=== PATIENT | male | born 1945 | race Two or more races ===

== ENCOUNTER 2021-11-24 00:39 | Inpatient (IN) | payer MEDICARE, OTHER ==
[~2021-11-24] VITALS: Ht 182.9 cm; Wt 85.3 kg
--- NOTE | 2021-11-24 01:00 | NUR ---
TO ER BED 9. [id number] FROM HOME C/O NECK PAIN AND SWOLLEN RIGHT FINGER.PT IS ALERT. RR EVEN AND NONLABORED. CONNECTED TO MONITOR. AWAITING MD JACOBSEN
[2021-11-24] MEDS ORDERED: CEFTRIAXONE 1GM BAG (ER ONLY) 1 GM/50 ML PIGGYBACK IV ONE (04:00)
[2021-11-24] MEDS ORDERED: CEFTRIAXONE 1GM BAG (ER ONLY) 50 ML IV ONE (04:05)
--- NOTE | 2021-11-24 04:08 | NUR ---
IV LINE ESTABLISHED, [id number]
--- NOTE | 2021-11-24 04:20 | NUR ---
BLOOD AND CULTURES COLLECTED
[2021-11-24 04:26] LABS: BASOPHILS # (AUTO) 0.1 K/uL (0.0-0.2); BASOPHILS % (AUTO) 0.3 % (0.0-2.0); EOSINOPHILS % (AUTO) 0.4 % (0.0-6.0); HEMATOCRIT 47 % (39-51); LYMPHOCYTES # (AUTO) 10.4 K/uL (0.8-4.8); LYMPHOCYTES % (AUTO) 58.1 % (20.0-44.0); MEAN CORPUSCULAR HGB CONC 32 g/dl (31.0-36.0); MEAN CORPUSCULAR VOLUME 85 fL (80-96); MONOCYTES # (AUTO) 0.6 K/uL (0.1-1.30); MONOCYTES % (AUTO) 3.2 % (2.0-12.0); NEUTROPHILS # (AUTO) 6.8 K/uL (1.8-8.9); PLATELET COUNT (AUTO) 252 K/uL (150-450); RED BLOOD CELL COUNT(AUTO) 5.47 MIL/uL (4.5-6.0); WHITE BLOOD COUNT (AUTO) 17.9 K/uL (4.3-11.0)
[2021-11-24] MEDS ORDERED: DEXAMETHASONE SOD PHOSPHATE 10 MG/ML VIAL IV ONE (04:30)
[2021-11-24] MEDS ORDERED: Z GUARD REMEDY 4 OZ OINT TP PRN (04:30)
[2021-11-24] MEDS ORDERED: MAGNESIUM HYDROXIDE 30 ML UDC PO PRN (04:30)
[2021-11-24] MEDS ORDERED: MAG HYDROX/AL HYDROX/SIMETH 30 ML UDC PO PRN (04:30)
[2021-11-24] MEDS ORDERED: ONDANSETRON HCL/PF 4 MG/2 ML VIAL IVP PRN (04:30)
[2021-11-24] MEDS ORDERED: ACETAMINOPHEN 325 MG TABLET PO PRN (04:30)
[2021-11-24 04:36] LABS: CALCIUM, SERUM 10.4 mg/dL (8.5-10.1); CREATININE 0.9 mg/dL (0.6-1.3); POTASSIUM 4.7 mmol/L (3.5-5.1)
[2021-11-24] MEDS ORDERED: LIDOCAINE VISCOUS 2% UD 15 ML UDC MM ONE (06:30)
--- NOTE | 2021-11-24 07:47 | NUR ---
BED 107
--- NOTE | 2021-11-24 07:57 | NUR ---
PT REPORT GIVEN TO VIKTOR BOLAÑOS
[2021-11-24] MEDS ORDERED: VERA120T10 PO (08:28)
[2021-11-24] MEDS ORDERED: ESOM40CA PO (08:28)
[2021-11-24] MEDS ORDERED: ALPR0.255 PO (08:28)
[2021-11-24] MEDS ORDERED: HYDR-3980 PO (08:28)
[2021-11-24] MEDS ORDERED: FINA5TAB11 PO (08:28)
[2021-11-24] MEDS: PANTOPRAZOLE 40 MG VIAL IV SCH (08:49)
[2021-11-24] MEDS ORDERED: VANCOMYCIN 1.25 GM in IV D5W 250 ML IV ONE (09:00)
[2021-11-24 09:35] VITALS: BP 134/62
--- NOTE | 2021-11-24 09:55 | NUR ---
RN NOTE REPORTED TO DR. MUNGUIA PT IS REPORTING SEVERE ABD PAIN AND REQUESTING MORPHINE AND ATIVAN OR XANAX FOR ANXIETY. MD REPORT WILL BE COMING TO ASSESS PT.
[2021-11-24] MEDS ORDERED: DEXAMETHASONE SOD PHOSPHATE 4 MG in IV D5W 50 ML IV SCH (10:30)
[2021-11-24] MEDS: IV D5/ 0.9% NACL 1,000 ML IV PRN (10:57)
[2021-11-24] MEDS: DEXAMETHASONE SOD PHOSPHATE 4 MG/ML VIAL IV SCH ×3 (11:18→23:54)
[2021-11-24 12:00] VITALS: BP 134/62
--- NOTE | 2021-11-24 16:07 | NUR ---
RN NOTE IV LINE LOST. PT REFUSES TO TRY FOR A NEW IV AT THIS TIME, STATES HE WILL AGREE TO IT AFTER HIS ABD CT AFTER 5PM
[2021-11-24 20:00] VITALS: BP 142/81
[2021-11-24] MEDS: VANCOMYCIN 1 GM in IV D5W 250 ML IV SCH (20:42)
--- NOTE | 2021-11-24 22:24 | NUR ---
DIVYA RN OPENING NOTE PT RECEIVED IN BED, AWAKE, A&O X4, CALM, COOPERATIVE. PT ON RA WITH CURRENT O2SAT OF 97%; NO S/S OF RESP DISTRESS, NO SOB OR COUGH, NON-LABORED AND EQUAL BREATHING. PT ATTACHED TO EXTERNAL MONITOR, SR WITH PVCS AND HR OF 89. PT NOTED TO BE AMBULATORY WITH USE OF CRUTCHES. IV ACCESS ON LFA 20G, D5NS INFUSING AT 75 ML/HR. BED IN LOWEST POSITION, CALL LIGHT WITHIN REACH, SIDE RAILS UP X2. WILL CONTINUE TO MONITOR THROUGHOUT THE NIGHT.
[2021-11-25] VITALS: BP 133/80
[2021-11-25 04:00] VITALS: BP 132/81
[2021-11-25] MEDS: ENOXAPARIN SODIUM 40 MG/0.4 ML DISP.SYRIN SQ SCH ×2 (04:30→04:51)
[2021-11-25] MEDS: CEFTRIAXONE 1 G in IV D5W 50 ML IV SCH (04:48)
[2021-11-25] MEDS: IV D5/ 0.9% NACL 1,000 ML IV PRN (04:51)
[2021-11-25] MEDS: DEXAMETHASONE SOD PHOSPHATE 4 MG/ML VIAL IV SCH ×4 (05:03→23:21)
[2021-11-25 06:16] LABS: BASOPHILS % (AUTO) 0.2 % (0.0-2.0); HEMATOCRIT 41 % (39-51); HEMOGLOBIN 13.2 g/dL (13.5-17.5); LYMPHOCYTES # (AUTO) 11.9 K/uL (0.8-4.8); LYMPHOCYTES % (AUTO) 63.4 % (20.0-44.0); MEAN CORPUSCULAR HGB CONC 32 g/dl (31.0-36.0); MEAN CORPUSCULAR VOLUME 84 fL (80-96); MONOCYTES # (AUTO) 0.2 K/uL (0.1-1.30); MONOCYTES % (AUTO) 1.1 % (2.0-12.0); NEUTROPHILS # (AUTO) 6.6 K/uL (1.8-8.9); NEUTROPHILS % (AUTO) 35.3 % (43.0-81.0); PLATELET COUNT (AUTO) 237 K/uL (150-450); RED BLOOD CELL COUNT(AUTO) 4.91 MIL/uL (4.5-6.0); WHITE BLOOD COUNT (AUTO) 18.7 K/uL (4.3-11.0)
[2021-11-25 06:32] LABS: CALCIUM, SERUM 9.5 mg/dL (8.5-10.1); CREATININE 0.7 mg/dL (0.6-1.3); MAGNESIUM 2.2 mg/dL (1.8-2.4); PHOSPHORUS 2.8 mg/dL (2.5-4.9); POTASSIUM 4.1 mmol/L (3.5-5.1)
[2021-11-25 06:48] LABS: THYROID STIMULATING HORMONE 0.353 uIU/mL (0.358-3.74)
--- NOTE | 2021-11-25 07:02 | NUR ---
DIVYA RN CLOSING NOTE PT REMAINS IN BED, AWAKE, A&O X4, CALM, COOPERATIVE. CONTINUES TO BE ON RA WITH O2SAT RANGING FROM 96%-97%; NO S/S OF RESP DISTRESS, NO SOB OR COUGH, NON-LABORED AND EQUAL BREATHING. ATTACHED TO EXTERNAL MONITOR, SR WITH PVCS; HR RANGING FROM 87-90. LFA 20G INTACT AND PATENT, FLUSHES EASILY WITH NO RESISTANCE; D5NS INFUSING AT 75 ML/HR. ALL DUE MEDS ADMINISTERED DURING THE NIGHT. BED IN LOWEST POSITION, CALL LIGHT WITHIN REACH, SIDE RAILS UP X2. WILL ENDORSE TO DAYSHIFT NURSE TO CONTINUE CARE.
--- NOTE | 2021-11-25 07:10 | NUR ---
RN NOTE RECEIVED PATIENT IN BED RESTING ALERT ORIENTED X4 VERBALLY RESPONSIVE ON ROOM AIR O2:97% IV SITE IS ON LEFT FOREARM INTACT PATENT ON IV HYDRATION D5NS 75CC/HR.NPO.AMBULATORY WITH CRUTCHES,CONTIENT BOWEL/BLADDER.SAFETY MEASURE IMPLEMENT BED IN LOW POSITON AND LOCKED,CALL LIGHT WITHIN REACH CONTINUE TO MONITOR.
[2021-11-25 08:00] VITALS: BP 134/64
[2021-11-25] MEDS: VANCOMYCIN 1 GM in IV D5W 250 ML IV SCH ×2 (08:01→20:52)
[2021-11-25] MEDS: PANTOPRAZOLE 40 MG VIAL IV SCH (08:01)
[2021-11-25 09:03] LABS: ALBUMIN 3.1 g/dL (3.4-5.0); BILIRUBIN,DIRECT 0.2 mg/dL (0.0-0.2); BILIRUBIN,TOTAL 0.6 mg/dL (0.2-1.0)
[2021-11-25 12:00] VITALS: BP 127/66
[2021-11-25 12:23] LABS: BAND % (MANUAL) 3 % (0.0-5.0); LYMPHOCYTES % (MANUAL) 50 % (16-48); MONOCYTES % (MANUAL) 5 % (0-11.0); NEUTROPHILS % (MANUAL) 32 (42-76); REACTIVE LYMPHOCYTES 10 % (0-0)
[2021-11-25 16:00] VITALS: BP 142/84
--- NOTE | 2021-11-25 18:27 | NUR ---
RN NOTE PATIENT REMAINS ALERT ORIENTED X4 VERBALLY RESPONSIVE ON ROOM AIR,O2:97% NO SOB NOT ACUTE DISTRESS NOTED,HE IS ON PUREE DIET.IV SITE IS ON LEFT FOREARM,INTACT PATENT,HE REFUSES IV HYDRATION,ALL DUE MEDS GIVEN MD ORDERED KEPT CLEAN AND DRY,KEPT CALL LIGHT WITHIN REACH WILL ENDORSE NEXT COMING SHIFT FOR CONTINUATION OF CARE.
[2021-11-25 20:00] VITALS: BP 142/84
--- NOTE | 2021-11-25 20:51 | NUR ---
DIVYA RN OPENING NOTE PT RECEIVED IN BED, ASLEEP A&O X4, CALM, COOPERATIVE. PT ON RA; NO S/S OF RESP DISTRESS, NO SOB OR COUGH, NON-LABORED AND EQUAL BREATHING; APPEARS COMFORTABLE OVERALL. PT ATTACHED TO EXTERNAL MONITOR, SR WITH PVCS AND HR OF 84. IV ACCESS ON LFA 20G, D5NS INFUSING AT 75 ML/HR. BED IN LOWEST POSITION, CALL LIGHT WITHIN REACH, SIDE RAILS UP X2. WILL CONTINUE TO MONITOR THROUGHOUT THE NIGHT.
--- NOTE | 2021-11-25 20:56 | NUR ---
RN NOTE PT REFUSED TO HAVE 2000 VITAL SIGNS TAKEN.
--- NOTE | 2021-11-25 21:58 | NUR ---
RN NOTE AFTER VANCO FINISHED INFUSING, PT REFUSED TO BE CONNECTED TO IVF.
[2021-11-25] MEDS: PHENOL/SODIUM PHENOLATE 1 BOTTLE MM PRN (23:28)
--- NOTE | 2021-11-25 23:29 | NUR ---
RN NOTE PT REPORTS OF HAVING SCRATCHINESS IN HIS THROAT. PT ADMINISTERED CHLORASEPTIC THROAT SPRAY.
[2021-11-26] VITALS: BP 111/65
[2021-11-26 04:00] VITALS: BP 132/79
[2021-11-26] MEDS: CEFTRIAXONE 1 G in IV D5W 50 ML IV SCH (04:52)
[2021-11-26] MEDS: ENOXAPARIN SODIUM 40 MG/0.4 ML DISP.SYRIN SQ SCH (04:53)
[2021-11-26] MEDS: DEXAMETHASONE SOD PHOSPHATE 4 MG/ML VIAL IV SCH ×3 (05:01→16:34)
[2021-11-26] MEDS: PHENOL/SODIUM PHENOLATE 1 BOTTLE MM PRN (05:38)
--- NOTE | 2021-11-26 05:38 | NUR ---
RN NOTE PT REQUESTS FOR THROAT SPRAY FOR DISCOMFORT AND SCRATCHINESS IN HIS THROAT.
--- NOTE | 2021-11-26 06:49 | NUR ---
DIVYA RN CLOSING NOTE PT REMAINS IN BED, AWAKE, A&O X4, CALM, COOPERATIVE. CONTINUES TO BE ON RA WITH O2SAT STABLE AT 95%; NO S/S OF RESP DISTRESS, NO SOB OR COUGH, NON-LABORED AND EQUAL BREATHING; PT REPORTS OF IMPROVEMENT IN THE PAIN OF HIS THROAT. ATTACHED TO EXTERNAL MONITOR, SR WITH PVCS; HR RANGED FROM FROM 63-85. LFA 20G INTACT AND PATENT, FLUSHES EASILY WITH NO RESISTANCE; PT REFUSES TO BE ATTACHED TO IVF HE STATES HE'S "RECEIVED ENOUGH FLUIDS". ALL DUE MEDS ADMINISTERED DURING THE NIGHT. BED IN LOWEST POSITION, CALL LIGHT WITHIN REACH, SIDE RAILS UP X2. WILL ENDORSE TO DAYSHIFT NURSE TO CONTINUE CARE.
--- NOTE | 2021-11-26 07:20 | NUR ---
RN NOTE RECEIVED PATIENT IN BED RESTING ALERT ORIENTED X4 VERBALLY RESPONSIVE ON ROOM AIR O2:95% IV SITE IS ON LEFT FOREARM INTACT PATENT,AMBULATORY,CONTIENT BOWEL/BLADDER,SAFETY MEASURE IMPLEMENT BED IN LOW POSTIION AND LOCKED CONTINUE TO MONITOR.
[2021-11-26 07:46] LABS: CREATININE 0.7 mg/dL (0.6-1.3)
[2021-11-26 08:00] VITALS: BP 138/66
[2021-11-26] MEDS: PANTOPRAZOLE 40 MG/PACK PACK PO SCH (08:42)
[2021-11-26] MEDS: VANCOMYCIN 1 GM in IV D5W 250 ML IV SCH (08:42)
[2021-11-26] MEDS ORDERED: DEXAMETHASONE SOD PHOSPHATE 4 MG/ML VIAL IV SCH (14:00)
[2021-11-26 16:00] VITALS: BP 131/53
[2021-11-26] MEDS: VANCOMYCIN 1 GM in IV D5W 250ml IV SCH (16:34)
--- NOTE | 2021-11-26 18:24 | NUR ---
RN NOTE PATIENT REMAINS ALERT ORIENTED X4 VERBALLY RESPONSIVE ON ROOM AIR O2:97% IV SITE IS ON LEFT FOREARM INTACT PATENT NO SOB NOT ACUTE DISTRESS NOTED,ALL DUE MEDS GIVEN MD ORDERED,AMBULATORY,CONTIENT BOWEL/BLADDER ALL NEEDS MET ENDORSE NEXT COMING SHIFT FOR CONTINUATION OF CARE
[2021-11-26 20:00] VITALS: BP 124/49
[2021-11-27] MEDS: VANCOMYCIN 1 GM in IV D5W 250ml IV SCH ×3 (00:56→17:00)
[2021-11-27 04:00] VITALS: BP 134/81
[2021-11-27] MEDS: CEFTRIAXONE 1 G in IV D5W 50 ML IV SCH (04:08)
[2021-11-27] MEDS: ENOXAPARIN SODIUM 40 MG/0.4 ML DISP.SYRIN SQ SCH (04:13)
--- NOTE | 2021-11-27 04:38 | NUR ---
RN OPENING NOTE PT RECEIVED IN BED, AWAKE A/O X 4, CALM, COOPERATIVE AND ABLE TO MAKE NEEDS KNOWN. CURRENTLY ON RA, TOLERATING WELL. NO S/SX OF RESPI DISTRESS NOTED AT THIS TIME, NO SOB OR COUGH, BREATHING IS EVEN AND UNLABORED, APPEARS COMFORTABLE OVERALL. PT ATTACHED TO EXTERNAL MONITOR, SR WITH PVCS AND HR IN 80s. IV ACCESS ON LFA 20G, SL. ALL SAFETY MEASURES IN PLACE: BED IN LOWEST POSITION, CALL LIGHT WITHIN REACH, SIDE RAILS UP X2. WILL CONTINUE TO MONITOR THROUGHOUT THE NIGHT.
--- NOTE | 2021-11-27 06:43 | NUR ---
RN CLOSING NOTE PT REMAINED STABLE T/O THE NIGHT. ALL DUE MEDS GIVEN. NEEDS ATTENDED TO. WILL ENDORSE TO AM SHIFT NURSE FOR KASH.
--- NOTE | 2021-11-27 07:33 | NUR ---
DRYWALL SPRAYER OPENING NOTES: RECEIVED PATIENT IN BED, AWAKE, ALERT, ORIENTED X 4. NO SOB NOTED, BREATHING EVEN AND UNLABORED. ON RA WITH OXYGEN SATURATION OF 98%. PATIENT HAS AN IV ACCESS ON LEFT FOREARM, INTACT, FLUSHES WELL, NO S/S INFILTRATION NOTED. PATIENT DENIES ANY DIFFICULTY BREATHING NOR SWALLOWING. CALL LIGHT WITHIN REACH. BED LOCKED AND IN LOWEST POSITION. ALL SAFETY MEASURES IN PLACE. WILL CONTINUE TO MONITOR PATIENT THROUGHOUT SHIFT.
[2021-11-27 07:46] LABS: CALCIUM, SERUM 9.6 mg/dL (8.5-10.1); CREATININE 0.8 mg/dL (0.6-1.3); POTASSIUM 3.8 mmol/L (3.5-5.1)
[2021-11-27] MEDS: PANTOPRAZOLE 40 MG/PACK PACK PO SCH (08:18)
[2021-11-27] MEDS: DEXAMETHASONE SOD PHOSPHATE 4 MG/ML VIAL IV SCH ×2 (08:18→17:00)
[2021-11-27 12:00] VITALS: BP 139/77
--- NOTE | 2021-11-27 17:23 | NUR ---
RECEIVED DISCHARGE ORDER FOR THE PATIENT. EXPLAINED THE PROCEDURE TO THE PATIENT AND PAPERWORK SIGNED BY THE PATIENT. PATIENT DENIES ANY C/O PAIN OR DISCOMFORT NOTED. NO DIFFICULTY BREATHING AND NO DIFFICULTY SWALLOWING. DISCHARGE INSTRUCTIONS PROVIDED TO THE PATIENT AND AGREED AND UNDERSTOOD. IV DISCONTINUED NOTED WITH HUB INTACT, NAME BAND TAKEN OFF WELL.
--- NOTE | 2021-11-27 17:30 | NUR ---
HOSPITALITY TEAM MEMBER CALLED [facility] TO ARRANGE TRANSPORTATION FOR THE PATIENT @ [id number] [place] [address] AND WAS TOLD THAT IT WILL TAKE ABOUT 30 MINUTES. PATIENT INFORMED.
--- NOTE | 2021-11-27 17:55 | NUR ---
PATIENT WAS TAKEN TO THE LOBBY VIA WHEELCHAIR TO WAIT FOR HIS TRANSPORTATION. PATIENT LEFT IN NO ACUTE DISTRESS NOTED.
--- NOTE | 2021-11-27 18:15 | NUR ---
PATIENT CAME BACK AND SAID THAT THE TRANSPORTATION DID NOT ARRIVE. CALLED THE [facility] AGAIN AND SAID TO CALL IN 15 MINUTES.
--- NOTE | 2021-11-27 19:44 | NUR ---
ARRANGED ANOTHER TRANSPORTATION FOR THE PATIENT DUE TO [facility] WAS NOT ABLE TO SEND A RESEARCH PROJECT COORDINATOR FOR THE PATIENT. TOOK PATIENT TO THE LOBBY TO HAVE TRANSPORTATION PICK HIM UP. PATIENT LEFT IN NO APPARENT DISTRESS NOTED.
[2021-11-30] MEDS ORDERED: DEXA4TAB PO (21:23)
== END 2021-11-27 20:27 | disposition home health service (06) | DRG 153 ==
LOC: ER 00:42 → TRANSITION 06:50 → TELE1 08:09 → TELE-TD 11:14 → MEDSG1 11-26 10:10
PROVIDERS: ADMIT Internal Medicine
DX: J05.10 Acute epiglottitis without obstruction (principal); K56.7 Ileus, unspecified; I10 Essential (primary) hypertension; K80.20 Calculus of gallbladder without cholecystitis without obstruction; Z20.822 Contact with and (suspected) exposure to COVID-19; K52.9 Noninfective gastroenteritis and colitis, unspecified; Z79.899 Other long term (current) drug therapy; Z87.892 Personal history of anaphylaxis; K82.8 Other specified diseases of gallbladder; R60.9 Edema, unspecified; K66.8 Other specified disorders of peritoneum; Z85.6 Personal history of leukemia
CPT/HCPCS: 36415; 70490-TC; 71045-TC; 76700-TC; 80048-TC; 80076-TC; 80202-TC; 83735-TC; 84100-TC; 84443-TC; 85025-TC; 87040-TC; 87081-TC; C9113; C9803; G0378; J0696; J1100; J1650; J2405; J3370; J7042; J7050; J7060